=== PATIENT | female | born 1980 | race Caucasian/White ===

== ENCOUNTER 2021-07-04 17:47 | Emergency (ER) | payer OTHER, SELFPAY ==
[2021-07-04 17:47] VITALS: BP 160/90; PULSE 107; RESP 16; TEMP 36.3; O2SAT 99; BMI 19.9
--- NOTE | 2021-07-04 18:04 | RAD_ITS ---
STUDY: X-RAY - LEFT HAND, ATTENTION SECOND FINGER REASON FOR EXAM: Female, 41 years old. TRAUMA TECHNIQUE: 3 view(s) of the finger were obtained. COMPARISON: None. FINDINGS: Normal metacarpal head. Normal metacarpophalangeal joint. Normal proximal phalanx. There is a comminuted fracture at the base of the middle phalanx. Normal distal phalanx. Normal proximal interphalangeal joint. Normal distal interphalangeal joint. Soft tissue swelling of the finger. RAD/Finger(s) Min 2 Views IMPRESSION: Comminuted fracture at the base of the middle phalanx. Electronically Signed: Izaiah Dejesus DO at 19:00 EST Tel [phone], Service support ,
--- NOTE | 2021-07-04 21:55 | EX.ED.UPPERE ---
HPI History of Present Illness Chief Complaint: Upper Extremity Injury Narrative Narrative: Patient is a 41-year-old female who presents to the ER with complaint of right finger injury. She states around 4 PM today she was trying to rope in a steer she states that the steer went one direction and her hand went the other causing trauma to her right fifth finger. She states she has had bruising and swelling and difficulty moving it and has concern for fracture and therefore comes in for evaluation PFSH PFSH Allergy/AdvReac Type Severity Reaction Status Date / Time morphine Allergy Hives Verified 07/04/21 17:50 Surgical History (Updated 06/20/19 @ 09:12 by Isa Dunn) Hx of section Social History (Updated 06/20/19 @ 10:58 by Abdulkadir NOVAK, SCARLET) Smoking Status: Never smoker alcohol intake: never ROS ROS ED Constitutional Constitutional ED: Denies chills or fever(s) Cardiovascular Cardiovascular: Denies chest pain Respiratory/Chest Respiratory/Chest: Denies cough or dyspnea Gastrointestinal Gastrointestinal: Denies abdominal pain, diarrhea, nausea or vomiting Genitourinary Genitourinary ED: Denies dysuria Musculoskeletal Musculoskeletal: Reports other Details: Positive right fifth finger pain ; Denies myalgias Integumentary Denies Abrasions or rash Neurologic Neurologic: Denies headache(s) Hematologic/Lymphatic Hematologic/Lymphatic: Denies easy bleeding or easy bruising EXAM Physical Exam Const Vital Signs: 07/04/21 17:47 Temperature 97.3 F L Temperature Source Temporal Pulse Rate 107 H Respiratory Rate 16 Blood Pressure 160/90 H Blood Pressure Mean 113 Pulse Ox 99 Oxygen Delivery Method Room Air Positive well nourished and well developed General Appearance ED: well developed Eyes PERRL and EOMs intact bilaterally Neck supple Resp normal respiratory effort and clear to auscultation bilaterally Cardio regular rate and regular rhythm Extremity Extremity Narrative: Right upper extremity is neurovascularly intact. Patient has soft tissue swelling and ecchymosis to the proximal middle phalanx of the right fifth finger. There is no subungual hematoma and capillary refill is less than 3 seconds. Active flexion and extension is decreased secondary to pain. No obvious ligamentous or tendon injury noted. Remainder the exam is normal Neuro oriented x3 and CN's II-XII intact bilaterally Sensorium / Orientation: alert Psych mental status grossly normal Skin no rashes or lesions noted Skin Narrative: Soft tissue swelling ecchymosis to the right fifth finger as documented above MDM MDM MDM Narrative Medical decision making narrative: Patient presented to the ER with report of trauma to the right fifth finger and exam was consistent with this. However there is no obvious ligamentous or tendon injury or signs of an open fracture present. An x-ray was obtained and did confirm a comminuted middle phalanx fracture. At this time however the fracture is closed she is neurovascularly intact and she does not need emergent orthopedic consultation. Patient was placed in a metal finger splint to stabilize the fracture and can follow-up with orthopedics to discuss need for a K wire on an outpatient basis Radiography Diagnostic Testing: Clinical Impression(s) from Imaging Studies Finger X-Ray 07/04/21 18:04 IMPRESSION: Comminuted fracture at the base of the middle phalanx. Electronically Signed: Izaiah Dejesus DO at 19:00 EST Tel [phone], Service support , Discharge Plan Triage Chief Complaint: Upper Extremity Injury ED Provider: Hal Turner Dx/Rx/DC Orders Clinical Impression: Finger fracture, right Instructions: ED Fracture, Finger, Closed Primary Care Provider: Belkis Cortes Referrals: Belkis Cortes MD [Primary Care Provider] - Roni Plummer MD [STAFF PHYSICIAN] - 5-7 Days Activity Restrictions/Additional Instructions: Please wear your middle finger brace for stabilization of your fracture and follow-up with orthopedics to discuss need for possible K wire Disposition Disposition: Home, Self Care
== END 2021-07-04 22:13 | disposition home or self-care (01) ==
PROVIDERS: Emergency Provider Emergency Medicine; PCP Family Medicine
DX: S62.626A Displaced fracture of middle phalanx of right little finger, initial encounter for closed fracture (principal); X50.1XXA Overexertion from prolonged static or awkward postures, initial encounter; Y93.89 Activity, other specified; Y92.89 Other specified places as the place of occurrence of the external cause; Y99.8 Other external cause status
CPT/HCPCS: 73140; 99283

== ENCOUNTER → 2024-03-30 | Outpatient (CLI) | payer OTHER, SELFPAY ==
--- NOTE | 2024-03-30 08:57 | BI_ITS ---
MAMMOGRAPHY - BILATERAL DIAGNOSTIC REASON FOR EXAM: Female, 43 years old. Palpable lump in the upper outer quadrant of the right breast. PERTINENT HISTORY: Non-contributory. TECHNIQUE: Digital bilateral breast susy (3D mammographic acquisition) in the CC and MLO projections. 2-D mediolateral oblique (MLO) and craniocaudad (CC) views of both breasts were obtained. CAD: Full Field Digital Mammography with Computer Added Detection was performed. COMPARISON: None. Baseline examination. FINDINGS: Breast Composition: The breasts are extremely dense, which lowers the sensitivity of mammography. Multiple well-defined nodules are seen in the upper outer quadrant of the left breast. The largest measures 3 cm x 2.4 cm. This corresponds to the palpable lump. Well-defined nodular densities are seen in the left breast as well. The largest is in the central portion and measures 2.9 cm x 2.6 cm. Correlation with ultrasound is recommended for both breasts. There are no dominant masses or suspicious calcifications. No other significant abnormalities are identified. BI/DIAG MAMM W/CAD, BILAT IMPRESSION: Nodular densities in both breasts as described. Correlation with ultrasound is recommended. ASSESSMENT CATEGORY: BIRADS Category 0: Incomplete. Need additional imaging evaluation. A letter regarding these results will be sent to the patient by the facility within 30 days. Approximately 10% of breast cancers are not detected by mammography. A normal mammogram should not delay biopsy of a clinically suspicious abnormality. Electronically Signed: Valentin Herndon MD at 10:23 EDT ,
--- NOTE | 2024-03-30 08:58 | US_ITS ---
STUDY: ULTRASOUND BREAST - RIGHT REASON FOR EXAM: Female, 43 years old. Abnormal screening mammogram. TECHNIQUE: Axial and longitudinal images of the RIGHT breast were performed with a high resolution ultrasound transducer. # OF IMAGES: 43 COMPARISON: Comparison is made with prior mammogram dated March 30, 2024. FINDINGS: RIGHT Breast: The lateral aspect of the right breast was examined with ultrasound. There is a 2.3 cm x 2.1 cm x 1 cm benign appearing cyst at the 9:00 position of the breast at 2 cm from nipple. Adjacent to this, there is a 2.1 cm x 1.7 cm x 1.2 cm cyst. US/Breast Limited Unilateral IMPRESSION: Right breast cysts. ASSESSMENT CATEGORY: BIRADS Category 2: Benign. A letter regarding these results will be sent to the patient by the facility within 30 days. Electronically Signed: Valentin Herndon MD at 15:18 EDT ,
--- NOTE | 2024-03-30 09:38 | US_ITS ---
STUDY: ULTRASOUND BREAST - LEFT REASON FOR EXAM: Female, 43 years old. Abnormal screening mammogram. TECHNIQUE: Axial and longitudinal images of the LEFT breast were performed with a high resolution ultrasound transducer. # OF IMAGES: 52 COMPARISON: Comparison is made with prior mammogram done earlier today. FINDINGS: LEFT Breast: The upper aspect of the left breast was examined with ultrasound. Several cysts are seen. The largest cyst measures 2.9 cm x 3 cm x 0.7 cm. US/Breast Limited Unilateral IMPRESSION: Multiple breast cysts. The palpable lump corresponds to a 2.9 cm x 3 cm x 0.7 cm cyst. ASSESSMENT CATEGORY: BIRADS Category 2: Benign. A letter regarding these results will be sent to the patient by the facility within 30 days. Electronically Signed: Valentin Herndon MD at 15:17 EDT ,
== END | disposition home or self-care (01) ==
LOC: OPBI 08:56
PROVIDERS: PCP Family Medicine; Referring Provider Family Medicine; Visit Provider Family Medicine
DX: R92.8 Other abnormal and inconclusive findings on diagnostic imaging of breast (principal)
CPT/HCPCS: 76642; 77062; 77066; G0279